=== PATIENT | male | born 1950 | race Hispanic/Latino ===

== ENCOUNTER 2019-12-16 16:24 | Inpatient (IN) | payer OTHER, MEDICARE ==
[~2019-12-16] VITALS: Ht 170.2 cm; Wt 77.8 kg
[2019-12-16] MEDS ORDERED: ALBUTEROL INHALER 90MCG/INH IH ONE (16:37)
[2019-12-16 16:56] LABS: BASOPHILS % (AUTO) 0.1 % (0.0-5.0); EOSINOPHILS % (AUTO) 0.3 % (0.0-8.0); HEMATOCRIT 42.9 % (42-54); LYMPHOCYTES % (AUTO) 2.5 % (21.0-51.0); MEAN CORPUSCULAR HEMOGLOBIN 31.8 pg (27.0-33.0); MEAN CORPUSCULAR HGB CONC 34.3 g/dL (32.0-36.0); MEAN CORPUSCULAR VOLUME 92.9 fL (79-99); MONOCYTES % (AUTO) 3.4 % (3.0-13.0); NEUTROPHILS % (AUTO) 92.5 % (40.0-77.0); PLATELET COUNT (AUTO) 305 K/uL (130-400); RED BLOOD CELL COUNT(AUTO) 4.62 MIL/uL (4.50-6.20); RED CELL DISTRIBUTION WIDTH 13.2 % (11.0-15.5); WHITE BLOOD COUNT (AUTO) 20.6 K/uL (4.8-10.8)
[2019-12-16 17:10] LABS: INR 0.92 (0.85-1.15); PARTIAL THROMBOPLASTIN TIME 27.4 SEC (26.3-35.5)
[2019-12-16 17:23] LABS: B-TYPE NATRIURETIC PEPTIDE 272 pg/mL (0-100)
[2019-12-16 17:30] LABS: ALBUMIN 2.1 g/dL (3.5-5.0); BILIRUBIN,TOTAL 0.7 mg/dL (0.2-1.0); CREATININE 1.4 mg/dL (0.5-1.5); POTASSIUM 4.7 mmol/L (3.5-5.1); TOTAL PROTEIN, SERUM 6.7 g/dL (6.0-8.3)
[2019-12-16 17:44] LABS: CRP QUANTITATIVE 272.9 mg/L (0.00-9.0)
[2019-12-16 17:47] LABS: FERRITIN 1786 ng/mL (30-400)
[2019-12-16] MEDS ORDERED: DOXYCYCLINE 100MG+NS 250ML 250 ML IV ONE (18:06)
[2019-12-16] MEDS ORDERED: ALBUTEROL INHALER 90MCG/INH IH PRN (20:30)
[2019-12-16] MEDS ORDERED: ONDANSETRON HCL 4 MG/2 ML VIAL IV PRN (20:30)
[2019-12-16] MEDS: DOXYCYCLINE 100MG+NS 250ML 250 ML IV SCH (20:30)
[2019-12-16] MEDS ORDERED: ZOLPIDEM TARTRATE 5 MG TAB PO PRN (20:30)
[2019-12-16] MEDS: CEFTRIAXONE SODIUM 1 GM IVP SCH (20:30)
[2019-12-16] MEDS ORDERED: ACETAMINOPHEN 325 MG TAB PO PRN (20:30)
[2019-12-16] MEDS ORDERED: ERGOCALCIFEROL (VITAMIN D2) 50,000 UNIT CAPSULE PO ONE (20:45)
[2019-12-16] MEDS: ACETYLCYSTEINE 600 MG CAPSULE PO SCH (21:00)
[2019-12-16] MEDS: FAMOTIDINE/PF 20 MG/2 ML VIAL IV SCH (21:00)
[2019-12-16] MEDS: METHYLPREDNISOLONE SOD SUCC 40MG/ML 1ML IVP SCH (21:00)
[2019-12-16 22:02] LABS: APPEARANCE,URINE Clear (CLEAR); BILIRUBIN,URINE Negative (NEGATIVE); COLOR,URINE Yellow (YELLOW); GLUCOSE, URINE (UA) Negative (NEGATIVE); KETONES,URINE Negative (NEGATIVE); LEUKOCYTE ESTERASE ,URINE Negative (NEGATIVE); NITRATE,URINE Negative (NEGATIVE); OCCULT BLOOD,URINE Negative (NEGATIVE); PROTEIN,URINE Trace mg/dL (NEGATIVE)
[2019-12-16 22:10] LABS: RBC,URINE 0-1 /HPF (0-1); WBC,URINE 0-1 /HPF (0-1)
[2019-12-16 22:11] LABS: BACTERIA,URINE Rare /HPF (None Seen); MUCUS,URINE Rare LPF (None Seen); SQUAMOUS EPITHELIAL CELL,UR Rare /HPF (0-2)
[2019-12-16] MEDS ORDERED: FAMOTIDINE/PF 20 MG/2 ML VIAL IV ONE (22:37)
[2019-12-16] MEDS ORDERED: CEFTRIAXONE SODIUM 1 GM ONE (22:37)
[2019-12-16] MEDS ORDERED: ERGOCALCIFEROL (VITAMIN D2) 50,000 UNIT CAPSULE ONE (22:37)
[2019-12-16] MEDS ORDERED: ACETYLCYSTEINE 600 MG CAPSULE ONE (22:37)
--- NOTE | 2019-12-16 23:05 | NUR ---
ADMIT PATIENT ARRIVED TO THE FLOOR VIA STRETCHER ACCOMPANIED BY ER NURSE MILKA AND RESPIRATORY THERAPIST. PT ASSISTED TO THE BED WITH SOB ON EXERTION. AFTER IN BED TELE MONITOR CALLED TO INFORM PATIENT HAD EPISODE OF A-FLUTTER WHICH SUBSIDED AND PATIENT REMAINED IN SR. DB=508/98, 86, 97.6, 22 92% ON HI SANAM O2 @ 50L. PT ORIENTED TO ROOM AND STAFF VIA UPPER SORBIAN SPEAKING TECH. CALL DEVICE WITHIN REACH WILL CONT. TO MONITOR.
--- NOTE | 2019-12-17 02:00 | NUR ---
HEART RATE PATIENT WITH EPISODE OF A-FLUTTER VIA TELE MONITOR IN THE 130-140S. METER MECHANIC CRIME PREVENTION POLICE OFFICER NOTIFIED GAVE ORDER TO GIVE METOPROLOL 5MG IVP HEART SUSTAINING IN 140s/. PATIENT WITH NO C./O CHEST PAIN OR ANXIETYSPO2 91% ON HI-FLOW 50L. CALL DEVICE WITHIN REACH, WILL CONT. TO MONITOR.
[2019-12-17] MEDS: METOPROLOL TARTRATE 1 MG/ML 5ML VIAL IV PRN (02:10)
[2019-12-17] MEDS ORDERED: DILTIAZEM HCL 125 MG/25 ML 125 MG in SODIUM CHLORIDE 0.9% 100 ML IV PRN (03:00)
[2019-12-17] MEDS ORDERED: DILTIAZEM HCL 5 MG/ML 5 ML VIAL IVP PRN (03:00)
--- NOTE | 2019-12-17 03:45 | NUR ---
ARRHYTHMIA PATIENT WITH CONT EPISODE OF A-FLUTTER VIA TELE MONITOR IN THE 130-140S. MANUFACTURING OPERATIONS MANAGER SEWER DIGGER NOTIFIED GAVE ORDER TO GIVE CARDIAZEM IVP BOLUS AND INITIATE CARDIAZEM IV DRIP, 12LEAD EKG AND CARDIO CONSULT IN THE AM. HEART RATE SUSTAINING IN 140s/. PATIENT EDUCATED OF THE NEED AND USE OF CARDIAZEM TO CORRECT HEART RATE VIA ANDORRAN SPEAKING TECH. PATIENT EXPRESSED UNDERSTANDING. PATIENT WITH NO C/O CHEST PAIN OR ANXIETY SPO2 91% ON HI-FLOW 50L 100% FiO2. CALL DEVICE WITHIN REACH, WILL CONT. TO MONITOR.
[2019-12-17] MEDS: ALPRAZOLAM 0.25 MG TABLET PO PRN (04:00)
[2019-12-17 04:20] VITALS: BP 118/73
--- NOTE | 2019-12-17 05:15 | NUR ---
FOLLOW UP PATIENT CURRENTLY ON CARDIAZEM DRIP AT 10MG/HR TOLERATING WELL CURRENT HEART RATE IN 100 TO 110s. PT DENIES ANY CHEST PAIN, SOB OR ANXIETY. CALL DEVICE WITHIN REACH WILL CONT. TO MONITOR.
[2019-12-17 05:21] LABS: BASOPHILS % (AUTO) 0.1 % (0.0-5.0); HEMATOCRIT 42.7 % (42-54); LYMPHOCYTES % (AUTO) 3.4 % (21.0-51.0); MEAN CORPUSCULAR HEMOGLOBIN 31.7 pg (27.0-33.0); MEAN CORPUSCULAR HGB CONC 34.2 g/dL (32.0-36.0); MEAN CORPUSCULAR VOLUME 92.8 fL (79-99); NEUTROPHILS % (AUTO) 91.5 % (40.0-77.0); PLATELET COUNT (AUTO) 337 K/uL (130-400); RED CELL DISTRIBUTION WIDTH 13.2 % (11.0-15.5); WHITE BLOOD COUNT (AUTO) 17.6 K/uL (4.8-10.8)
[2019-12-17 05:54] LABS: ALANINE AMINOTRANSFERASE 47 U/L (12-78); ASPARTATE AMINOTRANSFERASE 37 U/L (10-37); BILIRUBIN,TOTAL 0.6 mg/dL (0.2-1.0); CARBON DIOXIDE 26 mmol/L (21-32); CHLORIDE 105 mmol/L (101-111); CREATINE KINASE, TOTAL 93 U/L (21-232); CREATININE 1.4 mg/dL (0.5-1.5); GLOMERULAR FILTR. RATE CALC 53 mL/min (>60); GLUCOSE,RANDOM 277 mg/dL (70-105); LACTATE DEHYDROGENASE 484 U/L (81-234); MYOGLOBIN 134 ng/mL (10-92); POTASSIUM 4.9 mmol/L (3.5-5.1); SODIUM SERUM 138 mmol/L (136-145); TOTAL PROTEIN, SERUM 6.6 g/dL (6.0-8.3); TROPONIN I < 0.04 ng/mL (0.00-0.06); UREA NITROGEN, BLOOD 32 mg/dL (7-18)
[2019-12-17 08:34] VITALS: BP 120/78
[2019-12-17] MEDS ORDERED: ENOXAPARIN SODIUM 40 MG/0.4 ML SYRINGE SQ SCH ×2 (09:00→11:30)
[2019-12-17] MEDS: DOXYCYCLINE 100MG+NS 250ML 250 ML IV SCH ×2 (09:19→20:30)
[2019-12-17] MEDS: CEFTRIAXONE SODIUM 1 GM IVP SCH ×2 (09:19→20:30)
[2019-12-17] MEDS: ACETYLCYSTEINE 600 MG CAPSULE PO SCH ×2 (09:20→21:00)
[2019-12-17] MEDS: METHYLPREDNISOLONE SOD SUCC 40MG/ML 1ML IVP SCH (09:20)
[2019-12-17] MEDS: ZINC SULFATE 220 CAPSULE PO SCH (09:20)
[2019-12-17] MEDS: FAMOTIDINE/PF 20 MG/2 ML VIAL IV SCH ×2 (09:20→21:00)
[2019-12-17] MEDS: ACETAMINOPHEN 325 MG TAB PO PRN (09:21)
[2019-12-17] MEDS: GUAIFENESIN-DM 200/20 MG 10 ML PO PRN (09:21)
[2019-12-17] MEDS: ASCORBIC ACID 500 MG TAB PO SCH (09:21)
[2019-12-17] MEDS ORDERED: PHARMACY COMMUNICATION MISC SCH (10:30)
[2019-12-17 13:39] VITALS: BP 115/72
--- NOTE | 2019-12-17 13:45 | NUR ---
DC PLAN CALLED BACK TO ANSWER QUESTIONS. PATIENT LIVES IN [place]. INDEPENDENT ABLE TO PERFORM ADL'S. PATIENT HAS NO SERVICES OR DME'S. FEELS SAFE TO RETURN HOME. Addendum: 12/17/19 at 1351 by TRINIDAD NOVA RN CM Amended: Links added.
[2019-12-17 16:20] VITALS: BP 152/78
[2019-12-17 20:00] VITALS: BP 119/70
[2019-12-17] MEDS ORDERED: COMPOUND IV REFRIGERATED 1 EACH IVSOLN MISC PRN (20:00)
[2019-12-17] MEDS ORDERED: REMDESIVIR (EUA) 520 200 MG in SODIUM CHLORIDE 0.9% 250 ML IV ONE (20:00)
--- NOTE | 2019-12-17 20:00 | NUR ---
SHIFT UPDATE PATIENT GIVEN FULL BED BATH, ALL LINENS CHANGED, REPOSITIONED AND PULLED UP IN BED. REMAINS ON CARDIAZEM DRIP HEART RATE CURRENTLY 80s TO 90s DOSE REDUCED FROM 15 TO 5 MG/HR. NO RESP. DISTRESS NOTED, SPO2 93 ON HIFLOW 50L AND NR. INITIAL DOSE OF REMDESIVIR GIVEN PT. TOLERATED WELL. PATIENT PLEASANT AND COOPERATIVE WITH CARE. CALL DEVICE WITHIN REACH WILL CONT. TO MONITOR.
[2019-12-17] MEDS: CLONAZEPAM 1 MG TABLET PO SCH (21:00)
[2019-12-17] MEDS: ENOXAPARIN SODIUM 80 MG/0.8 ML SQ SCH (21:00)
[2019-12-17] MEDS: DEXAMETHASONE SOD PHOSPHATE 4 MG/ML 1ML VIAL IVP SCH (21:00)
[2019-12-17] MEDS ORDERED: SODIUM CHLORIDE 0.9% 500ML 500 ML IV ONE (21:08)
[2019-12-18] VITALS: BP 118/68
--- NOTE | 2019-12-18 00:01 | NUR ---
UPDATE CALL FROM TELE MONITOR STATING PATIENT HAS CONVERTED TO SINUS RHYTHM IN THE 60's. CARDIZEM DRIP STOPPED AT THIS TIME. PATIENT STABLE AT THIS TIME. CALL DEVICE WITHIN REACH WILL CONT. TO MONITOR.
--- NOTE | 2019-12-18 02:00 | NUR ---
UPDATE PATENT PLACED IN PRONE POSITION, TOLERATED WELL. SPO2 INCREASED, CURRENTLY AT 98% ON HI-SANAM 50 LITERS WITH NB MASK. CALL DEVICE WITHIN REACH WILL CONT. TO MONITOR.
[2019-12-18 04:00] VITALS: BP 99/51
[2019-12-18 04:10] LABS: BASOPHILS % (AUTO) 0.1 % (0.0-5.0); HEMATOCRIT 40.6 % (42-54); LYMPHOCYTES % (AUTO) 3.2 % (21.0-51.0); MEAN CORPUSCULAR HEMOGLOBIN 31.7 pg (27.0-33.0); MEAN CORPUSCULAR VOLUME 93.3 fL (79-99); MONOCYTES % (AUTO) 4.6 % (3.0-13.0); NEUTROPHILS % (AUTO) 91.4 % (40.0-77.0); PLATELET COUNT (AUTO) 342 K/uL (130-400); RED BLOOD CELL COUNT(AUTO) 4.35 MIL/uL (4.50-6.20); RED CELL DISTRIBUTION WIDTH 13.2 % (11.0-15.5); WHITE BLOOD COUNT (AUTO) 12.3 K/uL (4.8-10.8)
[2019-12-18 04:28] LABS: BILIRUBIN,TOTAL 0.4 mg/dL (0.2-1.0); CREATININE 1.4 mg/dL (0.5-1.5); CRP QUANTITATIVE 148.6 mg/L (0.00-9.0); POTASSIUM 4.4 mmol/L (3.5-5.1); TOTAL PROTEIN, SERUM 6.3 g/dL (6.0-8.3)
[2019-12-18] MEDS: PHARMACY COMMUNICATION MISC SCH (07:01)
[2019-12-18] MEDS: INSULIN HUMULIN R 100 UNIT/ML 3ML SQ SCH ×7 (07:30→21:00)
[2019-12-18 08:15] VITALS: BP 147/90
[2019-12-18 08:18] LABS: HEMOGLOBIN A1C 7.3 % (4.0-6.0)
[2019-12-18] MEDS: FAMOTIDINE/PF 20 MG/2 ML VIAL IV SCH ×2 (08:57→21:00)
[2019-12-18] MEDS: ZINC SULFATE 220 CAPSULE PO SCH (08:57)
[2019-12-18] MEDS: CEFTRIAXONE SODIUM 1 GM IVP SCH ×2 (08:57→20:30)
[2019-12-18] MEDS: ACETYLCYSTEINE 600 MG CAPSULE PO SCH ×2 (08:58→21:00)
[2019-12-18] MEDS: ENOXAPARIN SODIUM 80 MG/0.8 ML SQ SCH ×2 (08:58→21:00)
[2019-12-18] MEDS: DEXAMETHASONE SOD PHOSPHATE 4 MG/ML 1ML VIAL IVP SCH ×2 (08:58→21:00)
[2019-12-18] MEDS: ASCORBIC ACID 500 MG TAB PO SCH (08:58)
[2019-12-18] MEDS: CLONAZEPAM 1 MG TABLET PO SCH ×2 (08:59→21:00)
[2019-12-18] MEDS: DOXYCYCLINE 100MG+NS 250ML 250 ML IV SCH ×2 (09:25→20:30)
[2019-12-18 12:00] VITALS: BP 134/87
[2019-12-18] MEDS: DILTIAZEM HCL 120 MG CAP.SR.24H PO SCH (12:14)
[2019-12-18] MEDS: REMDESIVIR (EUA) 520 100 MG in SODIUM CHLORIDE 0.9% 250 ML IV SCH (12:32)
[2019-12-18 16:45] VITALS: BP 138/78
--- NOTE | 2019-12-18 18:06 | NUR ---
Patient ate less than half of lunch and dinner. Last fs 139 and no coverage due to lack of intake. will continue to monitor as needed. Addendum: 12/18/19 at 1808 by Tarik Gonzalez RN RN Patient was proned after from approximately 1300 to 1745. tolerated well with turning. will continue to monitor
[2019-12-18 20:47] VITALS: BP 151/89
[2019-12-18] MEDS: INSULIN GLARGINE 100 UNITS/ML 10 ML VIAL SQ SCH (21:00)
--- NOTE | 2019-12-18 22:35 | NUR ---
PLASMA SECOND BAG OF PLASMA INITIATED AND INFUSING W/O DIFFICULTY. PATIENT'S VITALS STABLE, NO ADVERSE REACTIONS NOTED AT THIS TIME. NO C/O PAIN OR DISCOMFORT, CALL DEVICE WITHIN REACH WILL CONT. TO MONITOR.
[2019-12-19 00:25] VITALS: BP 147/83
[2019-12-19] MEDS: METOPROLOL TARTRATE 1 MG/ML 5ML VIAL IV PRN (00:30)
--- NOTE | 2019-12-19 00:30 | NUR ---
ARRHYTHMIA PATIENT WITH CONT EPISODE OF A-FLUTTER VIA TELE MONITOR IN THE 130-140S HIGHEST 150S. COAL SAMPLE TESTER ANESTHESIOLOGIST NOTIFIED HE INSTRUCTED THIS NURSE TO GIVE METOPROLOL 5MG PER EXISTING PRN ORDER, 12LEAD EKG AND CARDIO CONSULT IN THE AM. HEART RATE SUSTAINING IN 140s/. PATIENT EDUCATED OF THE NEED AND USE OF METOPROLOL TO LOWER HEART RATE VIA FILIPINO SPEAKING TECH. PATIENT EXPRESSED UNDERSTANDING. PATIENT WITH NO C/O CHEST PAIN OR ANXIETY SPO2 91% ON HI-FLOW 50L 100% FiO2. CALL DEVICE WITHIN REACH, WILL CONT. TO MONITOR.
--- NOTE | 2019-12-19 02:00 | NUR ---
SHIFT UPDATE PATIENT HEART RATE REASSESSED CURRENTLY IN A-FLUTTER 100s. ON-CALL HAIR AND MAKEUP DESIGNER UPDATED ON PATIENTS CURRENT STATUS, HE EXPRESSED UNDERSTANDING. BED BATH GIVEN, LINENS CHANGED. PATIENT PLACED IN PRONE POSITION AT THIS TIME, HE TOLERATED WELL. SPO2 INCREASED, CURRENTLY AT 98% ON HI-SANAM 50 LITERS WITH NON-REBREATHER MASK. CALL DEVICE WITHIN REACH WILL CONT. TO MONITOR.
[2019-12-19 04:50] VITALS: BP 116/70
[2019-12-19 04:54] LABS: BASOPHILS % (AUTO) 0.2 % (0.0-5.0); HEMATOCRIT 42.7 % (42-54); LYMPHOCYTES % (AUTO) 3.3 % (21.0-51.0); MEAN CORPUSCULAR HEMOGLOBIN 31.8 pg (27.0-33.0); MEAN CORPUSCULAR HGB CONC 34.2 g/dL (32.0-36.0); MONOCYTES % (AUTO) 3.9 % (3.0-13.0); NEUTROPHILS % (AUTO) 91.8 % (40.0-77.0); PLATELET COUNT (AUTO) 352 K/uL (130-400); RED BLOOD CELL COUNT(AUTO) 4.59 MIL/uL (4.50-6.20); RED CELL DISTRIBUTION WIDTH 13.3 % (11.0-15.5)
[2019-12-19] MEDS: PHARMACY COMMUNICATION MISC SCH (05:11)
[2019-12-19 05:15] LABS: ALBUMIN 2.2 g/dL (3.5-5.0); BILIRUBIN,DIRECT 0.2 mg/dL (0.0-0.3); BILIRUBIN,TOTAL 0.5 mg/dL (0.2-1.0); CREATININE 1.4 mg/dL (0.5-1.5); CRP QUANTITATIVE 79.3 mg/L (0.00-9.0); POTASSIUM 4.6 mmol/L (3.5-5.1); TOTAL PROTEIN, SERUM 6.4 g/dL (6.0-8.3)
[2019-12-19] MEDS: INSULIN HUMULIN R 100 UNIT/ML 3ML SQ SCH ×7 (06:43→21:00)
[2019-12-19 08:00] VITALS: BP 123/94
[2019-12-19] MEDS: CEFTRIAXONE SODIUM 1 GM IVP SCH ×2 (08:00→20:30)
[2019-12-19] MEDS: DOXYCYCLINE 100MG+NS 250ML 250 ML IV SCH ×2 (08:00→20:30)
[2019-12-19] MEDS: DEXAMETHASONE SOD PHOSPHATE 4 MG/ML 1ML VIAL IVP SCH ×2 (08:01→21:00)
[2019-12-19] MEDS: FAMOTIDINE/PF 20 MG/2 ML VIAL IV SCH ×2 (08:01→21:00)
[2019-12-19] MEDS: ASCORBIC ACID 500 MG TAB PO SCH (08:02)
[2019-12-19] MEDS: CLONAZEPAM 1 MG TABLET PO SCH ×2 (08:02→21:00)
[2019-12-19] MEDS: ZINC SULFATE 220 CAPSULE PO SCH (08:02)
[2019-12-19] MEDS: ACETYLCYSTEINE 600 MG CAPSULE PO SCH ×2 (08:02→21:00)
[2019-12-19] MEDS: DILTIAZEM HCL 120 MG CAP.SR.24H PO SCH (08:02)
[2019-12-19] MEDS: ENOXAPARIN SODIUM 80 MG/0.8 ML SQ SCH ×2 (08:03→21:00)
[2019-12-19] MEDS: REMDESIVIR (EUA) 520 100 MG in SODIUM CHLORIDE 0.9% 250 ML IV SCH (14:08)
[2019-12-19 16:25] VITALS: BP 111/74
[2019-12-19 16:32] LABS: ABG BASE EXCESS -6.7 mmol/L (-2.0-3.0); ABG HCO3 15.8 mmol/L (21.0-28.0); ABG OXYGEN SATURATION 92.9 % (95.0-99.0); ABG PCO2 25 mmHg (35-48)
[2019-12-19 20:00] VITALS: BP 119/77
[2019-12-19] MEDS: INSULIN GLARGINE 100 UNITS/ML 10 ML VIAL SQ SCH (21:00)
[2019-12-20] VITALS: BP 115/72
[2019-12-20 03:34] LABS: BASOPHILS % (AUTO) 0.2 % (0.0-5.0); HEMATOCRIT 43.4 % (42-54); LYMPHOCYTES % (AUTO) 2.7 % (21.0-51.0); MEAN CORPUSCULAR HEMOGLOBIN 31.4 pg (27.0-33.0); MEAN CORPUSCULAR HGB CONC 33.6 g/dL (32.0-36.0); MEAN CORPUSCULAR VOLUME 93.3 fL (79-99); MONOCYTES % (AUTO) 2.9 % (3.0-13.0); NEUTROPHILS % (AUTO) 93.4 % (40.0-77.0); PLATELET COUNT (AUTO) 378 K/uL (130-400); RED BLOOD CELL COUNT(AUTO) 4.65 MIL/uL (4.50-6.20); RED CELL DISTRIBUTION WIDTH 13.2 % (11.0-15.5); WHITE BLOOD COUNT (AUTO) 14.3 K/uL (4.8-10.8)
[2019-12-20 03:47] LABS: BILIRUBIN,DIRECT 0.1 mg/dL (0.0-0.3); BILIRUBIN,TOTAL 0.4 mg/dL (0.2-1.0); CREATININE 0.5 mg/dL (0.5-1.5); TOTAL PROTEIN, SERUM 6.1 g/dL (6.0-8.3)
[2019-12-20 04:00] VITALS: BP 117/73
[2019-12-20] MEDS: PHARMACY COMMUNICATION MISC SCH ×6 (06:16→22:55)
[2019-12-20] MEDS: INSULIN HUMULIN R 100 UNIT/ML 3ML SQ SCH ×7 (06:19→22:51)
[2019-12-20 08:00] VITALS: BP 142/84
[2019-12-20] MEDS: CEFTRIAXONE SODIUM 1 GM IVP SCH ×2 (09:09→22:23)
[2019-12-20] MEDS: CLONAZEPAM 1 MG TABLET PO SCH ×2 (09:10→22:23)
[2019-12-20] MEDS: ASCORBIC ACID 500 MG TAB PO SCH (09:10)
[2019-12-20] MEDS: DEXAMETHASONE SOD PHOSPHATE 4 MG/ML 1ML VIAL IVP SCH ×2 (09:10→22:23)
[2019-12-20] MEDS: DILTIAZEM HCL 120 MG CAP.SR.24H PO SCH (09:10)
[2019-12-20] MEDS: ZINC SULFATE 220 CAPSULE PO SCH (09:10)
[2019-12-20] MEDS: FAMOTIDINE/PF 20 MG/2 ML VIAL IV SCH ×2 (09:10→22:23)
[2019-12-20] MEDS: ACETYLCYSTEINE 600 MG CAPSULE PO SCH ×2 (09:10→22:23)
[2019-12-20] MEDS: ENOXAPARIN SODIUM 80 MG/0.8 ML SQ SCH ×2 (09:11→22:50)
[2019-12-20] MEDS: DOXYCYCLINE 100MG+NS 250ML 250 ML IV SCH ×2 (09:23→22:23)
--- NOTE | 2019-12-20 10:59 | NUR ---
At approximately 1045---patient proned. no distress noted. will continue to monitor during tour as needed
[2019-12-20 11:28] LABS: CREATININE 1.3 mg/dL (0.5-1.5); POTASSIUM 4.4 mmol/L (3.5-5.1)
[2019-12-20] MEDS: REMDESIVIR (EUA) 520 100 MG in SODIUM CHLORIDE 0.9% 250 ML IV SCH (12:25)
[2019-12-20] MEDS ORDERED: ALBUMIN (HUMAN) 25% 50 ML IV SCH (16:15)
[2019-12-20 16:30] VITALS: BP 128/70
[2019-12-20] MEDS ORDERED: PHARMACY COMMUNICATION MISC SCH (16:45)
[2019-12-20] MEDS: GUAIFENESIN-DM 200/20 MG 10 ML PO PRN (18:43)
[2019-12-20 20:15] VITALS: BP 138/79
[2019-12-20] MEDS ORDERED: FUROSEMIDE 10 MG/ML 2ML VIAL IV SCH (21:50)
[2019-12-20] MEDS: INSULIN GLARGINE 100 UNITS/ML 10 ML VIAL SQ SCH (22:52)
[2019-12-20 23:35] VITALS: BP 127/72
[2019-12-21] MEDS: PHARMACY COMMUNICATION MISC SCH ×25 (01:00→21:20)
[2019-12-21] MEDS: METOPROLOL TARTRATE 1 MG/ML 5ML VIAL IV PRN (02:15)
[2019-12-21 04:09] LABS: HEMATOCRIT 48.5 % (42-54); MEAN CORPUSCULAR HEMOGLOBIN 31.6 pg (27.0-33.0); MEAN CORPUSCULAR VOLUME 92.9 fL (79-99); PLATELET COUNT (AUTO) 399 K/uL (130-400); RED BLOOD CELL COUNT(AUTO) 5.22 MIL/uL (4.50-6.20); RED CELL DISTRIBUTION WIDTH 12.8 % (11.0-15.5); WHITE BLOOD COUNT (AUTO) 19.3 K/uL (4.8-10.8)
[2019-12-21 04:21] LABS: ALBUMIN 2.1 g/dL (3.5-5.0); BILIRUBIN,DIRECT 0.2 mg/dL (0.0-0.3); BILIRUBIN,TOTAL 0.5 mg/dL (0.2-1.0); CREATININE 1.4 mg/dL (0.5-1.5); CRP QUANTITATIVE 47.9 mg/L (0.00-9.0); POTASSIUM 4.5 mmol/L (3.5-5.1); TOTAL PROTEIN, SERUM 6.5 g/dL (6.0-8.3)
[2019-12-21 05:10] VITALS: BP 123/78
[2019-12-21 05:26] LABS: BAND NEUTROPHILS % (MANUAL) 1 % (0-2); LYMPHOCYTES % (MANUAL) 2 % (22-44); MONOCYTES % (MANUAL) 5 % (2-9); SEGMENTED NEUTROPHILS % 92 % (40-70)
[2019-12-21 05:27] LABS: MAN.DIFF COMMENT-IMPRESSION MANUAL DIFFERENTIAL; PLATELET MORPHOLOGY COMMENT ADEQUATE
[2019-12-21] MEDS: INSULIN HUMULIN R 100 UNIT/ML 3ML SQ SCH ×7 (07:03→21:19)
[2019-12-21 08:00] VITALS: BP 115/76
[2019-12-21] MEDS: CLONAZEPAM 1 MG TABLET PO SCH ×2 (08:22→21:14)
[2019-12-21] MEDS: FAMOTIDINE/PF 20 MG/2 ML VIAL IV SCH ×2 (08:22→21:13)
[2019-12-21] MEDS: ENOXAPARIN SODIUM 80 MG/0.8 ML SQ SCH ×2 (08:22→21:17)
[2019-12-21] MEDS: DILTIAZEM HCL 120 MG CAP.SR.24H PO SCH (08:22)
[2019-12-21] MEDS: ACETYLCYSTEINE 600 MG CAPSULE PO SCH ×2 (08:23→21:14)
[2019-12-21] MEDS: ASCORBIC ACID 500 MG TAB PO SCH (08:23)
[2019-12-21] MEDS: ZINC SULFATE 220 CAPSULE PO SCH (08:23)
[2019-12-21] MEDS: DEXAMETHASONE SOD PHOSPHATE 4 MG/ML 1ML VIAL IVP SCH ×2 (08:23→21:13)
[2019-12-21] MEDS: DOXYCYCLINE 100MG+NS 250ML 250 ML IV SCH ×2 (08:23→21:12)
[2019-12-21] MEDS: CEFTRIAXONE SODIUM 1 GM IVP SCH ×2 (08:23→21:13)
[2019-12-21] MEDS: REMDESIVIR (EUA) 520 100 MG in SODIUM CHLORIDE 0.9% 250 ML IV SCH (13:01)
[2019-12-21] MEDS ORDERED: SENNOSIDES 8.6 MG TABLET PO PRN (13:30)
[2019-12-21] MEDS: LACTATED RINGERS 1000ML 1,000 ML IV SCH (14:13)
--- NOTE | 2019-12-21 19:00 | NUR ---
ACCEPTED CARE ACCEPTED CARE REPORT RECEIVED USING SBAR FORMAT
[2019-12-21 20:36] VITALS: BP 120/69
[2019-12-21] MEDS: DOCUSATE SODIUM 100 MG CAP PO SCH (21:14)
[2019-12-21] MEDS: INSULIN GLARGINE 100 UNITS/ML 10 ML VIAL SQ SCH (21:16)
[2019-12-22] VITALS (7 sets, daily range): BP systolic 105–186; BP diastolic 48–84
--- NOTE | 2019-12-22 04:13 | NUR ---
ROOM CHANGE PATIENT MOVED FROM 230 TO ROOM 232 DUE TO SAFETY CONCERNS AND TO BE CLOSER TO NURSES STATION. Addendum: 12/22/19 at 0416 by Mary Ellen Cool RN RN MOVED WITH RN, RT AND PCT. TOLERATED TRANSFER WITHOUT INCIDENCE OR DIFFICULTY.
[2019-12-22 04:35] LABS: BASOPHILS % (AUTO) 0.1 % (0.0-5.0); HEMATOCRIT 46.1 % (42-54); LYMPHOCYTES % (AUTO) 2.4 % (21.0-51.0); MEAN CORPUSCULAR HEMOGLOBIN 31.5 pg (27.0-33.0); MEAN CORPUSCULAR HGB CONC 34.3 g/dL (32.0-36.0); MONOCYTES % (AUTO) 2.6 % (3.0-13.0); NEUTROPHILS % (AUTO) 93.9 % (40.0-77.0); PLATELET COUNT (AUTO) 404 K/uL (130-400); RED BLOOD CELL COUNT(AUTO) 5.01 MIL/uL (4.50-6.20); RED CELL DISTRIBUTION WIDTH 12.7 % (11.0-15.5)
[2019-12-22 04:50] LABS: ALBUMIN 1.9 g/dL (3.5-5.0); BILIRUBIN,TOTAL 0.5 mg/dL (0.2-1.0); CREATININE 1.4 mg/dL (0.5-1.5); POTASSIUM 4.6 mmol/L (3.5-5.1); TOTAL PROTEIN, SERUM 5.9 g/dL (6.0-8.3)
[2019-12-22 05:03] LABS: BILIRUBIN,DIRECT 0.2 mg/dL (0.0-0.3)
[2019-12-22 05:13] LABS: CRP QUANTITATIVE 30.6 mg/L (0.00-9.0)
[2019-12-22] MEDS: INSULIN HUMULIN R 100 UNIT/ML 3ML SQ SCH ×7 (06:47→21:00)
[2019-12-22] MEDS: ASCORBIC ACID 500 MG TAB PO SCH (07:57)
[2019-12-22] MEDS: DEXAMETHASONE SOD PHOSPHATE 4 MG/ML 1ML VIAL IVP SCH ×2 (07:57→22:56)
[2019-12-22] MEDS: ACETYLCYSTEINE 600 MG CAPSULE PO SCH ×2 (07:57→22:56)
[2019-12-22] MEDS: CEFTRIAXONE SODIUM 1 GM IVP SCH ×2 (07:57→20:30)
[2019-12-22] MEDS: DOCUSATE SODIUM 100 MG CAP PO SCH ×2 (07:57→22:56)
[2019-12-22] MEDS: CLONAZEPAM 1 MG TABLET PO SCH ×2 (07:57→22:56)
[2019-12-22] MEDS: FAMOTIDINE/PF 20 MG/2 ML VIAL IV SCH ×2 (07:57→22:56)
[2019-12-22] MEDS: DOXYCYCLINE 100MG+NS 250ML 250 ML IV SCH ×2 (07:58→20:30)
[2019-12-22] MEDS: ENOXAPARIN SODIUM 80 MG/0.8 ML SQ SCH ×2 (07:58→22:56)
[2019-12-22] MEDS: ZINC SULFATE 220 CAPSULE PO SCH (07:58)
[2019-12-22] MEDS: LACTATED RINGERS 1000ML 1,000 ML IV SCH (07:58)
[2019-12-22] MEDS ORDERED: INSULIN GLARGINE 100 UNITS/ML 10 ML VIAL SQ SCH (09:00)
[2019-12-22] MEDS: DILTIAZEM HCL 120 MG CAP.SR.24H PO SCH (09:00)
--- NOTE | 2019-12-22 17:10 | NUR ---
Patient is proned during ski edge painter tour and at approximately 1430. no distress noted at this time. Held insulin dose for 1130am and 1630 dose due to patient not eating most of meals. patient given 4 units. will continue to monitor as needed.
[2019-12-22] MEDS: INSULIN GLARGINE 100 UNITS/ML 10 ML VIAL SQ SCH (21:00)
[2019-12-22] MEDS: METOPROLOL TARTRATE 1 MG/ML 5ML VIAL IV PRN (23:00)
[2019-12-22] MEDS: ALPRAZOLAM 0.25 MG TABLET PO PRN (23:00)
[2019-12-22] MEDS: GUAIFENESIN-DM 200/20 MG 10 ML PO PRN (23:30)
[2019-12-23 04:15] VITALS: BP 112/68
[2019-12-23 04:16] LABS: BASOPHILS % (AUTO) 0.2 % (0.0-5.0); HEMATOCRIT 46.9 % (42-54); LYMPHOCYTES % (AUTO) 2.2 % (21.0-51.0); MEAN CORPUSCULAR HEMOGLOBIN 31.6 pg (27.0-33.0); MEAN CORPUSCULAR HGB CONC 34.5 g/dL (32.0-36.0); MEAN CORPUSCULAR VOLUME 91.4 fL (79-99); MONOCYTES % (AUTO) 2.2 % (3.0-13.0); NEUTROPHILS % (AUTO) 94.3 % (40.0-77.0); PLATELET COUNT (AUTO) 422 K/uL (130-400); RED BLOOD CELL COUNT(AUTO) 5.13 MIL/uL (4.50-6.20); RED CELL DISTRIBUTION WIDTH 12.5 % (11.0-15.5); WHITE BLOOD COUNT (AUTO) 18.7 K/uL (4.8-10.8)
[2019-12-23 04:43] LABS: ALBUMIN 1.9 g/dL (3.5-5.0); BILIRUBIN,TOTAL 0.5 mg/dL (0.2-1.0); CREATININE 1.3 mg/dL (0.5-1.5); CRP QUANTITATIVE 17.7 mg/L (0.00-9.0); POTASSIUM 4.5 mmol/L (3.5-5.1); TOTAL PROTEIN, SERUM 5.8 g/dL (6.0-8.3)
[2019-12-23] MEDS: INSULIN HUMULIN R 100 UNIT/ML 3ML SQ SCH ×5 (06:48→21:00)
[2019-12-23 08:00] VITALS: BP 115/63
[2019-12-23] MEDS: DEXAMETHASONE SOD PHOSPHATE 4 MG/ML 1ML VIAL IVP SCH (08:17)
[2019-12-23] MEDS: FAMOTIDINE/PF 20 MG/2 ML VIAL IV SCH ×2 (08:17→21:00)
[2019-12-23] MEDS: ZINC SULFATE 220 CAPSULE PO SCH (08:17)
[2019-12-23] MEDS: CLONAZEPAM 1 MG TABLET PO SCH ×2 (08:17→21:00)
[2019-12-23] MEDS: ACETYLCYSTEINE 600 MG CAPSULE PO SCH ×2 (08:17→21:00)
[2019-12-23] MEDS: DILTIAZEM HCL 120 MG CAP.SR.24H PO SCH (08:18)
[2019-12-23] MEDS: ASCORBIC ACID 500 MG TAB PO SCH (08:18)
[2019-12-23] MEDS: ENOXAPARIN SODIUM 80 MG/0.8 ML SQ SCH ×2 (08:18→21:00)
[2019-12-23] MEDS: DOCUSATE SODIUM 100 MG CAP PO SCH ×2 (08:18→21:00)
[2019-12-23] MEDS: CEFTRIAXONE SODIUM 1 GM IVP SCH (08:19)
[2019-12-23] MEDS: DOXYCYCLINE 100MG+NS 250ML 250 ML IV SCH ×2 (08:19→20:30)
--- NOTE | 2019-12-23 09:46 | NUR ---
patient received in no distress this am. ate breakfast with no noted shortness of breath noted. proned at this time and will continue to prone for approximately 3- 4 hours. current sats 99% with 72 heart rate. bed alarm on and activated. will continue to monitor and assist during tour.
[2019-12-23 12:00] VITALS: BP 108/79
[2019-12-23] MEDS: INSULIN GLARGINE 100 UNITS/ML 10 ML VIAL SQ SCH (21:00)
[2019-12-23 21:02] VITALS: BP 118/58
[2019-12-24] VITALS (7 sets, daily range): BP systolic 97–125; BP diastolic 60–78
[2019-12-24 03:55] LABS: ABG BASE EXCESS -3.5 mmol/L (-2.0-3.0); ABG HCO3 19.3 mmol/L (21.0-28.0); ABG PCO2 30 mmHg (35-48)
[2019-12-24 03:59] LABS: BASOPHILS % (AUTO) 0.2 % (0.0-5.0); HEMATOCRIT 50.9 % (42-54); LYMPHOCYTES % (AUTO) 3.8 % (21.0-51.0); MEAN CORPUSCULAR HEMOGLOBIN 31.8 pg (27.0-33.0); MEAN CORPUSCULAR HGB CONC 34.8 g/dL (32.0-36.0); MEAN CORPUSCULAR VOLUME 91.5 fL (79-99); MONOCYTES % (AUTO) 3.5 % (3.0-13.0); NEUTROPHILS % (AUTO) 91.6 % (40.0-77.0); PLATELET COUNT (AUTO) 425 K/uL (130-400); RED BLOOD CELL COUNT(AUTO) 5.56 MIL/uL (4.50-6.20); RED CELL DISTRIBUTION WIDTH 12.7 % (11.0-15.5); WHITE BLOOD COUNT (AUTO) 20.8 K/uL (4.8-10.8)
[2019-12-24 04:19] LABS: ALBUMIN 2.1 g/dL (3.5-5.0); BILIRUBIN,TOTAL 0.7 mg/dL (0.2-1.0); CREATININE 1.3 mg/dL (0.5-1.5); CRP QUANTITATIVE 12.1 mg/L (0.00-9.0); POTASSIUM 4.5 mmol/L (3.5-5.1); TOTAL PROTEIN, SERUM 6.1 g/dL (6.0-8.3)
[2019-12-24] MEDS: INSULIN HUMULIN R 100 UNIT/ML 3ML SQ SCH ×4 (06:22→22:03)
[2019-12-24] MEDS ORDERED: INSULIN HUMULIN R 100 UNIT/ML 3ML SQ SCH (07:30)
[2019-12-24] MEDS: DOXYCYCLINE 100MG+NS 250ML 250 ML IV SCH (08:56)
[2019-12-24] MEDS: FAMOTIDINE/PF 20 MG/2 ML VIAL IV SCH ×2 (08:56→22:00)
[2019-12-24] MEDS: ACETYLCYSTEINE 600 MG CAPSULE PO SCH ×2 (08:57→22:00)
[2019-12-24] MEDS: ZINC SULFATE 220 CAPSULE PO SCH (08:57)
[2019-12-24] MEDS: ASCORBIC ACID 500 MG TAB PO SCH (08:57)
[2019-12-24] MEDS: CLONAZEPAM 1 MG TABLET PO SCH ×2 (08:58→22:00)
[2019-12-24] MEDS: DOCUSATE SODIUM 100 MG CAP PO SCH ×2 (08:58→22:00)
[2019-12-24] MEDS: ENOXAPARIN SODIUM 80 MG/0.8 ML SQ SCH ×2 (08:59→22:02)
[2019-12-24] MEDS ORDERED: DEXAMETHASONE 4 MG TAB PO SCH (09:00)
[2019-12-24] MEDS: DILTIAZEM HCL 120 MG CAP.SR.24H PO SCH (09:05)
[2019-12-24] MEDS: METOPROLOL TARTRATE 25 MG TAB PO SCH ×2 (14:05→22:00)
--- NOTE | 2019-12-24 15:19 | NUR ---
US at bedtime for 2-D Echo.
[2019-12-25] MEDS ORDERED: MAG HYDROX/AL HYDROX/SIMETH ES 30 ML SUSP UDCUP PO PRN (00:15)
[2019-12-25 04:06] LABS: BASOPHILS % (AUTO) 0.1 % (0.0-5.0); HEMATOCRIT 50.5 % (42-54); LYMPHOCYTES % (AUTO) 3.3 % (21.0-51.0); MEAN CORPUSCULAR HEMOGLOBIN 31.9 pg (27.0-33.0); MEAN CORPUSCULAR HGB CONC 34.9 g/dL (32.0-36.0); MEAN CORPUSCULAR VOLUME 91.5 fL (79-99); MONOCYTES % (AUTO) 3.7 % (3.0-13.0); PLATELET COUNT (AUTO) 393 K/uL (130-400); RED BLOOD CELL COUNT(AUTO) 5.52 MIL/uL (4.50-6.20); RED CELL DISTRIBUTION WIDTH 12.6 % (11.0-15.5); WHITE BLOOD COUNT (AUTO) 19.7 K/uL (4.8-10.8)
[2019-12-25 04:24] LABS: BILIRUBIN,TOTAL 0.9 mg/dL (0.2-1.0); CREATININE 1.3 mg/dL (0.5-1.5); CRP QUANTITATIVE 19.5 mg/L (0.00-9.0); POTASSIUM 4.9 mmol/L (3.5-5.1)
[2019-12-25 05:46] VITALS: BP 105/81
[2019-12-25] MEDS: METOPROLOL TARTRATE 25 MG TAB PO SCH ×3 (06:39→22:00)
[2019-12-25] MEDS: INSULIN HUMULIN R 100 UNIT/ML 3ML SQ SCH ×4 (06:40→21:00)
[2019-12-25] MEDS: FAMOTIDINE/PF 20 MG/2 ML VIAL IV SCH ×2 (08:05→21:00)
[2019-12-25] MEDS: ZINC SULFATE 220 CAPSULE PO SCH (08:06)
[2019-12-25] MEDS: ACETYLCYSTEINE 600 MG CAPSULE PO SCH (08:07)
[2019-12-25] MEDS: ASCORBIC ACID 500 MG TAB PO SCH (08:07)
[2019-12-25] MEDS: DOCUSATE SODIUM 100 MG CAP PO SCH ×2 (08:08→21:00)
[2019-12-25] MEDS: INSULIN GLARGINE 100 UNITS/ML 10 ML VIAL SQ SCH (08:09)
[2019-12-25] MEDS: ENOXAPARIN SODIUM 80 MG/0.8 ML SQ SCH ×2 (08:10→21:00)
[2019-12-25] MEDS: CLONAZEPAM 1 MG TABLET PO SCH ×2 (08:10→21:00)
[2019-12-25] MEDS: DEXAMETHASONE SOD PHOSPHATE 4 MG/ML 1ML VIAL IVP SCH (08:15)
[2019-12-25 09:38] VITALS: BP 119/80
[2019-12-25] MEDS: DILTIAZEM HCL 120 MG CAP.SR.24H PO SCH (10:33)
[2019-12-25 11:56] VITALS: BP 104/73
[2019-12-25 16:33] VITALS: BP 137/96
[2019-12-25 20:00] VITALS: BP 116/79
[2019-12-25 23:51] VITALS: BP 136/78
[2019-12-26] VITALS (65 sets, daily range): BP systolic 81–141; BP diastolic 36–89
[2019-12-26 04:32] LABS: BASOPHILS % (AUTO) 0.1 % (0.0-5.0); HEMATOCRIT 51.7 % (42-54); LYMPHOCYTES % (AUTO) 3.9 % (21.0-51.0); MEAN CORPUSCULAR HEMOGLOBIN 31.5 pg (27.0-33.0); MEAN CORPUSCULAR VOLUME 92.5 fL (79-99); MONOCYTES % (AUTO) 3.6 % (3.0-13.0); NEUTROPHILS % (AUTO) 91.7 % (40.0-77.0); PLATELET COUNT (AUTO) 310 K/uL (130-400); RED BLOOD CELL COUNT(AUTO) 5.59 MIL/uL (4.50-6.20); RED CELL DISTRIBUTION WIDTH 12.8 % (11.0-15.5); WHITE BLOOD COUNT (AUTO) 20.6 K/uL (4.8-10.8)
[2019-12-26 04:51] LABS: BILIRUBIN,TOTAL 0.8 mg/dL (0.2-1.0); CREATININE 1.3 mg/dL (0.5-1.5); CRP QUANTITATIVE 10.3 mg/L (0.00-9.0); TOTAL PROTEIN, SERUM 5.9 g/dL (6.0-8.3)
[2019-12-26] MEDS: METOPROLOL TARTRATE 25 MG TAB PO SCH ×3 (06:00→22:00)
[2019-12-26] MEDS: INSULIN HUMULIN R 100 UNIT/ML 3ML SQ SCH ×3 (06:23→21:00)
[2019-12-26] MEDS: DILTIAZEM HCL 120 MG CAP.SR.24H PO SCH (09:00)
[2019-12-26] MEDS: DOCUSATE SODIUM 100 MG CAP PO SCH ×2 (09:00→21:00)
[2019-12-26] MEDS: FAMOTIDINE/PF 20 MG/2 ML VIAL IV SCH ×2 (09:02→21:00)
[2019-12-26] MEDS: ASCORBIC ACID 500 MG TAB PO SCH (09:05)
[2019-12-26] MEDS: CLONAZEPAM 1 MG TABLET PO SCH ×2 (09:05→21:00)
[2019-12-26] MEDS: ZINC SULFATE 220 CAPSULE PO SCH (09:05)
[2019-12-26] MEDS: INSULIN GLARGINE 100 UNITS/ML 10 ML VIAL SQ SCH (09:08)
[2019-12-26] MEDS: ENOXAPARIN SODIUM 80 MG/0.8 ML SQ SCH ×2 (09:16→21:00)
[2019-12-26] MEDS: DEXAMETHASONE SOD PHOSPHATE 4 MG/ML 1ML VIAL IVP SCH (09:20)
[2019-12-26] MEDS: ACETAMINOPHEN 325 MG TAB PO PRN (09:21)
--- NOTE | 2019-12-26 09:31 | NUR ---
PT ASSESSED Assumed care of this pt. Pt resting comfortably on stretcher with eyes closed in NAD. Pt reassessed at this time, no changes in condition noted. VSS, RR even and unlabored, airway intact. Pt remains on HFNC and continuous O2 monitoring. Medicated per MAR using 2 pt identifiers, tolerated well, pt also reports moderate temporal PERRY rated 6/10, medicated with PRN tylenol. Denies any other pain or needs at this time. Will continue to monitor.
--- NOTE | 2019-12-26 12:49 | NUR ---
STATUS CHANGE Pt removed from bedside commode and place on bedside chair. Pt noted be be slightly diaphoretic, tachynpeic, and upper ext noted to be cold. MAAME Islas notified of pt's current condition, new orders for ABG and notify pulmonology. New order's placed, pt on HFNC 60 L 90% FIO2 and NRB @ 15L - O2 saturation is 96%. Awaiting ABG, will continue to monitor.
[2019-12-26 13:33] LABS: ABG BASE EXCESS -18.1 mmol/L (-2.0-3.0); ABG HCO3 8.9 mmol/L (21.0-28.0); ABG OXYGEN SATURATION 91.3 % (95.0-99.0); ABG PCO2 26 mmHg (35-48)
--- NOTE | 2019-12-26 15:05 | NUR ---
NOTIFIED Notified MD Pena of pt status and new ABG results, Dr. Pena reports he will see pt shortly. No new orders received, will continue to monitor.
[2019-12-26] MEDS ORDERED: SODIUM BICARB 50MEQ 50ML VIAL ONE ×3 (15:39→20:17)
--- NOTE | 2019-12-26 15:40 | NUR ---
1540: Pt reassessed at this time, noted to be more tachynepic and rapid abdominal breathing. This RN and quynh Celestin RN at bedside to assess VS and call rapid response. Multiple staff members at bedside to assess pt and start IV access. 1542: MD Pena at bedside to evaluate pt. Bicarb noted to have decreased from 20 to 8.9. 1555: 10 mcg fentanyl administered by BRUCE Keyes 1555: 10 mg Vec administered by BRUCE Keyes 1555: 20 mg Etomidate administered by BRUCE Keyes 1557: Pt intubated by MD Pena with 8.0 ETT, 24 @ lip. Vent parameters: TV: 380; RR: 40; 100% FIO2. Stat CXR ordered. BP: 41/26 HR: 118; post-intubation. 1L Bolus administered. CB 1602: NG inserted by BRUCE Keyes. 1605: 16 fr Fisher cath inserted by BRUCE Travis. Clear, yellow urine returned. Addendum: 12/26/19 at 1656 by GRAHAM MACDONALD RN RN 1410: CXR completed. 1611: BRUCE Rossi to bedside to report pt in Asystole. BRUCE Hadley starting compressions at this time. 1613: Bagging started by BRUCE Keyes; BRUCE Travis switched to compressions. 1614: Pt placed on backboard. 1615: Pulse check, no pulse. CPR continued. 1 mg Epi administered. 1616: 1 amp bicarb administered. 1617: Pulse check, no pulse, cpr continued. 1617: 1 amp bicarb administered by BRUCE Celestin 1618: 1 mg Epi administered by Stephy BARRERA 1619: Pulse check; no pulse, CPR resumed. 1621: CPR continued. 1621: 200 J administered. Vfib. CPR resumed 1622: 200 J administered. Vfib. CPR resumed. 1622: 1 mg Epi administered. 1623: ROSC, HR 115. 1625: BP 170/110; HR 117 1626: Vent setting adjusted: RR 30. 1627: BP: 134/90 HR: 120 1630: Pt transported to ICU RM 209. BRUCE Keyes given report.
[2019-12-26 15:44] LABS: ABG BASE EXCESS -25.6 mmol/L (-2.0-3.0); ABG HCO3 5.1 mmol/L (21.0-28.0); ABG OXYGEN SATURATION 90.4 % (95.0-99.0); ABG PCO2 23 mmHg (35-48)
[2019-12-26] MEDS ORDERED: NOREPINEPHRINE 4MG/NS 250ML 250 ML IV ONE (16:31)
[2019-12-26] MEDS ORDERED: SODIUM CHLORIDE 0.9% 1000ML 1,000 ML IV ONE ×3 (16:31→20:34)
[2019-12-26] MEDS ORDERED: NOREPINEPHRINE 4MG/NS 250ML 250 ML IV SCH (17:45)
[2019-12-26] MEDS ORDERED: PROPOFOL 1000 MG/100 ML IV PRN (17:45)
[2019-12-26] MEDS ORDERED: FENTANYL 2500MCG+NS 250ML 250 ML IV SCH (18:00)
--- NOTE | 2019-12-26 18:30 | NUR ---
CALLED EMERGENTLY TO START PICC, PT S/P CODE, POOR IV ACCESS AFTER MULTIPLE ATTEMPTS TO GET PERIPHERAL IV UNSECCESSFUL. 6 FR 3 LUMEN PICC INSERTED AT RIGHT BASILIC VEIN, USING ASEPTIC TECHNIQUE. (+) VPS BULLSEYE INDICATES PICC TIP IN LOWER 1/3 OF SVC OR AT CAJ. PICC OK TO USE PER PROTOCOL. ELIEL BARRERA AWARE. STERILE DRESSINGS INCLUDE BIOPATCH, STAT NATALEE AND PICC DRESSING APPLIED. ALL 3 LUMENS HAVE GOOD BLOOD RETURN, PULSATILE FLUSHED AND CLAMPED. PICC WAS CUT TO 39CM, WITH 38CM INTERNAL AND 1CM EXTERNAL CATHETER. ARM CIRCUMFERENCE IS 30CM. PT TOLERATED PROCEDURE WELL.
[2019-12-26 18:33] LABS: BASOPHILS % (AUTO) 0.2 % (0.0-5.0); HEMATOCRIT 36.6 % (42-54); MEAN CORPUSCULAR HEMOGLOBIN 31.9 pg (27.0-33.0); MEAN CORPUSCULAR HGB CONC 30.6 g/dL (32.0-36.0); MEAN CORPUSCULAR VOLUME 104.3 fL (79-99); NEUTROPHILS % (AUTO) 84.3 % (40.0-77.0); PLATELET COUNT (AUTO) 335 K/uL (130-400); RED BLOOD CELL COUNT(AUTO) 3.51 MIL/uL (4.50-6.20); RED CELL DISTRIBUTION WIDTH 13.2 % (11.0-15.5); WHITE BLOOD COUNT (AUTO) 23.1 K/uL (4.8-10.8)
[2019-12-26 18:41] LABS: INR 1.27 (0.85-1.15); PARTIAL THROMBOPLASTIN TIME 55.1 SEC (26.3-35.5); PROTHROMBIN TIME 13.6 SEC (9.6-11.6)
[2019-12-26 19:01] LABS: ABG BASE EXCESS -30.6 mmol/L (-2.0-3.0); ABG HCO3 5.5 mmol/L (21.0-28.0); ABG OXYGEN SATURATION 98.3 % (95.0-99.0); ABG PCO2 43 mmHg (35-48)
[2019-12-26 19:22] LABS: ALBUMIN 1.3 g/dL (3.5-5.0); BILIRUBIN,TOTAL 1.2 mg/dL (0.2-1.0); CREATININE 2.4 mg/dL (0.5-1.5); MAGNESIUM 3.4 mg/dL (1.80-2.40); TOTAL PROTEIN, SERUM 4.5 g/dL (6.0-8.3)
[2019-12-26 19:55] LABS: POTASSIUM 6.2 mmol/L (3.5-5.1)
--- NOTE | 2019-12-26 20:30 | NUR ---
pt assesed bright red amanda blood coming from oral gastric tube noted. Pt just on levo with fluid bolus running. Will recheck labs at 2230
[2019-12-26] MEDS ORDERED: CALCIUM GLUCONATE 1 GM/10 ML VIAL IV ONE (20:40)
[2019-12-26 22:34] LABS: HEMATOCRIT 30.9 % (42-54)
[2019-12-26 22:37] LABS: ABG HCO3 10.8 mmol/L (21.0-28.0); ABG OXYGEN SATURATION 89.6 % (95.0-99.0); ABG PCO2 64 mmHg (35-48)
[2019-12-26] MEDS: VASOPRESSIN 40 UNITS in SODIUM CHLORIDE 0.9% 40 ML IV SCH (22:43)
--- NOTE | 2019-12-26 22:50 | NUR ---
LABS [facility], CALLED MD ABOUT ABG , HGB, BMP AND LACTIC. VENT CHANGES MADE ND ORDER RECEIVED. WILL CONTINUE TO MONITOR.
[2019-12-26 22:55] LABS: CREATININE 2.8 mg/dL (0.5-1.5); MAGNESIUM 2.5 mg/dL (1.80-2.40); PHOSPHORUS 13.3 mg/dL (2.5-4.9); POTASSIUM 4.6 mmol/L (3.5-5.1)
[2019-12-27] VITALS (129 sets, daily range): BP systolic 67–234; BP diastolic 33–129
--- NOTE | 2019-12-27 00:23 | NUR ---
PT WENT IN TO A-FIB WITH RVR. PERFORM 12 LEAD TO VERIFY. NOTIFIED MD OF HEART RATE CHANGE AND NO URINE OUTPUT AFTER BOLUSES NOTED. RECIEVED ORDERS.
[2019-12-27] MEDS ORDERED: AMIODARONE HCL 150 MG in DEXTROSE 5%-WATER 100 ML IV SCH (00:45)
[2019-12-27] MEDS ORDERED: AMIODARONE HCL 360 MG in DEXTROSE 5%-WATER 200 ML IV SCH (00:45)
[2019-12-27] MEDS ORDERED: LACTATED RINGERS 1000ML 1,000 ML IV ONE (01:27)
[2019-12-27 02:44] LABS: ABG BASE EXCESS -23.9 mmol/L (-2.0-3.0); ABG HCO3 8.7 mmol/L (21.0-28.0); ABG OXYGEN SATURATION 94.5 % (95.0-99.0); ABG PCO2 46 mmHg (35-48)
[2019-12-27] MEDS ORDERED: SODIUM BICARB 50MEQ 50ML VIAL ONE ×2 (02:58→15:59)
[2019-12-27 04:36] LABS: HEMATOCRIT 32.5 % (42-54)
[2019-12-27 04:50] LABS: CREATININE 3.3 mg/dL (0.5-1.5); POTASSIUM 5.1 mmol/L (3.5-5.1)
--- NOTE | 2019-12-27 05:31 | NUR ---
UPDATED MD WITH NEW LAB RESULTS ORDERS RECEIVED.
[2019-12-27] MEDS ORDERED: ALBUMIN (HUMAN) 25% 100 ML IV PRN (05:45)
[2019-12-27] MEDS ORDERED: ALBUMIN (HUMAN) 25% 100 ML IV ONE (05:48)
[2019-12-27] MEDS: METOPROLOL TARTRATE 25 MG TAB PO SCH ×3 (06:00→20:16)
[2019-12-27 06:54] LABS: ABG BASE EXCESS -16.8 mmol/L (-2.0-3.0); ABG OXYGEN SATURATION 90.7 % (95.0-99.0); ABG PCO2 33 mmHg (35-48)
[2019-12-27] MEDS: INSULIN HUMULIN R 100 UNIT/ML 3ML SQ SCH ×4 (07:30→20:09)
[2019-12-27] MEDS: NOREPINEPHRINE BITARTRATE 32 MG in SODIUM CHLORIDE 0.9% 250 ML IV SCH (08:27)
[2019-12-27] MEDS ORDERED: DEXTROSE 50%-WATER 50 ML DISP.SYRIN IV ONE ×2 (08:37→15:54)
[2019-12-27] MEDS: CLONAZEPAM 1 MG TABLET PO SCH ×2 (09:00→20:10)
[2019-12-27] MEDS: DILTIAZEM HCL 120 MG CAP.SR.24H PO SCH (09:00)
[2019-12-27] MEDS: INSULIN GLARGINE 100 UNITS/ML 10 ML VIAL SQ SCH (09:00)
[2019-12-27] MEDS: ASCORBIC ACID 500 MG TAB PO SCH (09:00)
[2019-12-27] MEDS: DOCUSATE SODIUM 100 MG CAP PO SCH ×2 (09:00→20:09)
[2019-12-27] MEDS: ZINC SULFATE 220 CAPSULE PO SCH (09:00)
[2019-12-27] MEDS: ENOXAPARIN SODIUM 80 MG/0.8 ML SQ SCH ×2 (09:00→20:08)
[2019-12-27] MEDS ORDERED: DEXTROSE 10%-WATER 1,000 ML IV SCH (09:30)
--- NOTE | 2019-12-27 14:40 | NUR ---
full code Pt's son Lily Gregg called and said that even if Pt only have 1% chance to survive they are wanting to have everything done for the Pt, Physician notified, no order received at this time.
[2019-12-27 15:03] LABS: BASOPHILS % (AUTO) 0.2 % (0.0-5.0); EOSINOPHILS % (AUTO) 0.1 % (0.0-8.0); HEMATOCRIT 27.2 % (42-54); LYMPHOCYTES % (AUTO) 1.1 % (21.0-51.0); MEAN CORPUSCULAR HEMOGLOBIN 32.3 pg (27.0-33.0); MEAN CORPUSCULAR HGB CONC 31.3 g/dL (32.0-36.0); MEAN CORPUSCULAR VOLUME 103.4 fL (79-99); MONOCYTES % (AUTO) 1.6 % (3.0-13.0); NEUTROPHILS % (AUTO) 91.3 % (40.0-77.0); NUCLEATED RED BLOOD CELLS 0.1 % (0.0-0.19); PLATELET COUNT (AUTO) 165 K/uL (130-400); RED BLOOD CELL COUNT(AUTO) 2.63 MIL/uL (4.50-6.20)
[2019-12-27 15:06] LABS: WHITE BLOOD COUNT (AUTO) 33.6 K/uL (4.8-10.8)
[2019-12-27 15:22] LABS: ABG BASE EXCESS -21.4 mmol/L (-2.0-3.0); ABG OXYGEN SATURATION 87.4 % (95.0-99.0); ABG PCO2 39 mmHg (35-48)
[2019-12-27 15:23] LABS: ALBUMIN 2.1 g/dL (3.5-5.0); BILIRUBIN,TOTAL 3.2 mg/dL (0.2-1.0); CREATININE 4.3 mg/dL (0.5-1.5); MAGNESIUM 2.9 mg/dL (1.80-2.40); TOTAL PROTEIN, SERUM 3.7 g/dL (6.0-8.3)
[2019-12-27 15:27] LABS: BAND NEUTROPHILS % (MANUAL) 13 % (0-2); LYMPHOCYTES % (MANUAL) 1 % (22-44); MAN.DIFF COMMENT-IMPRESSION MANUAL DIFFERENTIAL; SEGMENTED NEUTROPHILS % 86 % (40-70)
[2019-12-27] MEDS ORDERED: DEXTROSE 50%-WATER 50 ML DISP.SYRIN IV STA (15:49)
[2019-12-27] MEDS ORDERED: RENAL DOSE IV SCH (16:00)
[2019-12-27] MEDS ORDERED: VANCOMYCIN PROTOCOL PER PHARMACY IV SCH (16:00)
[2019-12-27] MEDS ORDERED: CALCIUM CHLORIDE 100 MG/ML 10 ML SYG IVP SCH (16:15)
[2019-12-27] MEDS ORDERED: DEXTROSE 50%-WATER 50 ML DISP.SYRIN IV SCH (16:15)
[2019-12-27] MEDS ORDERED: COMPOUND IV REFRIGERATED 1 EACH IVSOLN MISC PRN (16:15)
[2019-12-27 16:18] LABS: POTASSIUM 6.5 mmol/L (3.5-5.1)
[2019-12-27] MEDS: ZOSYN 3.375GM+NS 50ML 50 ML IV SCH (16:37)
[2019-12-27] MEDS: DEXAMETHASONE SOD PHOSPHATE 4 MG/ML 1ML VIAL IVP SCH (16:38)
[2019-12-27] MEDS: FAMOTIDINE/PF 20 MG/2 ML VIAL IV SCH ×2 (16:38→20:10)
[2019-12-27] MEDS ORDERED: VANCOMYCIN 1.25 GM in SODIUM CHLORIDE 0.9% 250 ML IV SCH (17:00)
[2019-12-27] MEDS ORDERED: SODIUM BICARB 50MEQ 50ML VIAL IV ONE (18:15)
[2019-12-27] MEDS ORDERED: SODIUM BICARB 50 MEQ IV SCH (18:30)
[2019-12-27] MEDS ORDERED: INSULIN GLARGINE 100 UNITS/ML 10 ML VIAL SQ SCH (21:00)
[2019-12-27] MEDS ORDERED: DEXTROSE 5%-WATER 1,000 ML IV ONE (21:55)
[2019-12-27] MEDS ORDERED: CALCIUM GLUCONATE 1 GM/10 ML VIAL IV ONE (21:55)
[2019-12-27 23:57] LABS: ABG BASE EXCESS -8.8 mmol/L (-2.0-3.0); ABG HCO3 18.6 mmol/L (21.0-28.0); ABG OXYGEN SATURATION 94.5 % (95.0-99.0); ABG PCO2 50 mmHg (35-48)
--- NOTE | 2019-12-27 23:59 | NUR ---
ASSESSED PT. ABDOMEN DISTENDED AND SBP DROPPING WHILE MAXED ON BOTH VASOPRESSERS. ABG RETURN POST FIRST BAG OF BICARB SHOWING A LOW HEMOGLOBIN OF 6.6, BLOODY OG OUTPUT. HOSPITAL BIOCHEMISTRY TECHNICIAN GAVE ORDERS FOR KUB AND BLOOD PRODUCTS. CALLED SON AND RECEIVED TELEPHONE CONSENT.
[2019-12-28] VITALS (75 sets, daily range): BP systolic 71–154; BP diastolic 31–115
[2019-12-28 00:21] LABS: CREATININE 4.7 mg/dL (0.5-1.5)
[2019-12-28 00:39] LABS: POTASSIUM 6.6 mmol/L (3.5-5.1)
[2019-12-28 01:21] LABS: PARTIAL THROMBOPLASTIN TIME 74.4 SEC (26.3-35.5)
[2019-12-28 01:28] LABS: INR 3.51 (0.85-1.15); PROTHROMBIN TIME 36.1 SEC (9.6-11.6)
[2019-12-28] MEDS ORDERED: SODIUM CHLORIDE 0.9% 500ML 500 ML IV ONE (01:53)
[2019-12-28 04:05] LABS: ABG BASE EXCESS -4.2 mmol/L (-2.0-3.0); ABG HCO3 22.7 mmol/L (21.0-28.0); ABG OXYGEN SATURATION 75.4 % (95.0-99.0); ABG PCO2 51 mmHg (35-48)
[2019-12-28 04:21] LABS: ABG BASE EXCESS -5.5 mmol/L (-2.0-3.0); ABG HCO3 21.9 mmol/L (21.0-28.0); ABG OXYGEN SATURATION 73.3 % (95.0-99.0); ABG PCO2 53 mmHg (35-48)
[2019-12-28] MEDS ORDERED: CALCIUM GLUCONATE 1 GM/10 ML VIAL IV SCH (04:45)
[2019-12-28 04:48] LABS: HEMATOCRIT 24.9 % (42-54)
[2019-12-28 05:13] LABS: CREATININE 4.9 mg/dL (0.5-1.5); POTASSIUM 5.3 mmol/L (3.5-5.1)
--- NOTE | 2019-12-28 05:13 | NUR ---
ADJUNCT LATIN PROFESSOR NOTIFIED OF ABG CHANGES. NO ORDERS RECEIVED.
[2019-12-28] MEDS: ZOSYN 3.375GM+NS 50ML 50 ML IV SCH ×2 (05:16→15:04)
[2019-12-28] MEDS: INSULIN HUMULIN R 100 UNIT/ML 3ML SQ SCH ×2 (05:17→11:30)
[2019-12-28] MEDS ORDERED: DEXTROSE 50%-WATER 50 ML DISP.SYRIN IV ONE (07:30)
[2019-12-28 07:49] LABS: ABG BASE EXCESS -9.2 mmol/L (-2.0-3.0); ABG HCO3 18.9 mmol/L (21.0-28.0); ABG OXYGEN SATURATION 79.2 % (95.0-99.0); ABG PCO2 54 mmHg (35-48)
[2019-12-28] MEDS ORDERED: SODIUM BICARB 8.4% 50ML SYRING 150 MEQ in DEXTROSE 5%-WATER 1,000 ML IV SCH (08:00)
[2019-12-28] MEDS: METOPROLOL TARTRATE 25 MG TAB PO SCH ×2 (08:58→14:00)
[2019-12-28] MEDS: DILTIAZEM HCL 120 MG CAP.SR.24H PO SCH (08:58)
[2019-12-28] MEDS: DOCUSATE SODIUM 100 MG CAP PO SCH (08:59)
[2019-12-28] MEDS: INSULIN GLARGINE 100 UNITS/ML 10 ML VIAL SQ SCH (08:59)
[2019-12-28] MEDS: CLONAZEPAM 1 MG TABLET PO SCH (08:59)
[2019-12-28] MEDS: ZINC SULFATE 220 CAPSULE PO SCH (09:00)
[2019-12-28] MEDS ORDERED: DEXTROSE 50%-WATER 50 ML DISP.SYRIN IV SCH ×2 (09:00)
[2019-12-28] MEDS: ASCORBIC ACID 500 MG TAB PO SCH (09:52)
[2019-12-28] MEDS: DEXAMETHASONE SOD PHOSPHATE 4 MG/ML 1ML VIAL IVP SCH (09:52)
[2019-12-28] MEDS: FAMOTIDINE/PF 20 MG/2 ML VIAL IV SCH (09:52)
[2019-12-28] MEDS ORDERED: PHYTONADIONE 10 MG in SODIUM CHLORIDE 0.9% 50 ML SQ SCH (10:15)
--- NOTE | 2019-12-28 10:33 | NUR ---
RDSCREEN - LOS X 12 Pt admitted with COVID-19, Acute hypoxemic Respiratory Failure. Pt is intubated, mechanical ventilation. Pt is NPO at this time. Recommend initiate tube feedings, continuous Suplena @15mls, Goal rate 50mls/hr as medically feasible. Recommend H2O Flushes at 125mls Q6hrs. Recommendations faxed to [facility], RN notified. RD NOTE: Pt admitted with COVID-19, Acute hypoxemic Respiratory Failure. Pt is intubated as of 12/26/19, mechanical ventilation. Pt is currently NPO. Poor PO intake x 7 days. LBM 12/25/19. Monitored labs:Hgb 8.0, Na 166, K 5.3, BUN 106, Cr 4.9, GFR 13, BG 30, Ca 7.3, Mg 2.90, T. Bili 3.2, AST 8198, ALT 6755, Alk 169, Alb 2.1. Generalized 2+ edema. Pt to remain NPO at this time per RN. RD to continue to monitor. Please notify as additional nutrition concerns arise. Thank you.
[2019-12-28] MEDS ORDERED: SODIUM CHLORIDE 0.9% 250 ML IV ONE (13:43)
[2019-12-28] MEDS ORDERED: SODIUM BICARB 50MEQ 50ML VIAL 50 ML IV SCH (15:15)
[2019-12-28] MEDS ORDERED: SODIUM BICARB 50MEQ 50ML VIAL 150 ML IV SCH (15:15)
[2019-12-28] MEDS ORDERED: EPINEPHRINE 5 MG in SODIUM CHLORIDE 0.9% 250 ML IV SCH (15:45)
[2019-12-28] MEDS ORDERED: EPINEPHRINE 10 MG in SODIUM CHLORIDE 0.9% 250 ML IV SCH (15:45)
[2019-12-28 15:50] LABS: ABG BASE EXCESS -19.3 mmol/L (-2.0-3.0); ABG OXYGEN SATURATION 71.6 % (95.0-99.0); ABG PCO2 42 mmHg (35-48)
[2019-12-28] MEDS: NOREPINEPHRINE BITARTRATE 32 MG in SODIUM CHLORIDE 0.9% 250 ML IV SCH (15:55)
[2019-12-28] MEDS: VASOPRESSIN 40 UNITS in SODIUM CHLORIDE 0.9% 40 ML IV SCH (15:56)
--- NOTE | 2019-12-28 16:01 | NUR ---
ABG, Slow rhythm Notified Dr. Estrada with Pt's slow ventricular rhythm and abg result, Pt already in bicarb drip, max dose levo, max dose vaso, D10 at 100ml, FFP infusing, cardiac pads in place, BP unable to read at this time, no orders received from Dr. Estrada, Called son and updated with current situation, Pt remained full code.
--- NOTE | 2019-12-28 17:04 | NUR ---
Time of Time of 163, witnessed by this RN and Lizzie BARRERA, notified Pt's son Lily, Dr. Estrada, Dr. Inman and Livier Kelley RN.
--- NOTE | 2019-12-28 17:05 | NUR ---
time of Time of deth pronounced by Dr. Inman.
--- NOTE | 2019-12-28 18:46 | NUR ---
Pt's body now in the morgue, called and updated Pt's son, given him the house supervisors phone no. for them to call once they have home arrangement. Notified him as well that Pt have a phone, drivers license and his necklace in a Pt belongings bag with the security delivery specialist.
[2019-12-28] MEDS ORDERED: PANTOPRAZOLE 40 MG/VIAL IVP SCH (21:00)
== END 2019-12-28 16:34 | disposition expired | DRG 871 ==
LOC: EDH 16:24 → EDHIP 20:28 → 2AH 23:03 → 2BH 12-21 12:00 → 2AH 12-21 12:01 → 2BH 12-26 16:33
PROVIDERS: ADMIT Internal Medicine; ATTEND Internal Medicine
PROC: XW033E5 Introduction of Remdesivir Anti-infective into Peripheral Vein, Percutaneous Approach, New Technology Group 5 (ICD-10-PCS; 2019-12-17)
PROC: XW13325 Transfusion of Convalescent Plasma (Nonautologous) into Peripheral Vein, Percutaneous Approach, New Technology Group 5 (ICD-10-PCS; principal; 2019-12-18)
PROC: 5A1945Z Respiratory Ventilation, 24-96 Consecutive Hours (ICD-10-PCS; 2019-12-26)
PROC: 0BH17EZ Insertion of Endotracheal Airway into Trachea, Via Natural or Artificial Opening (ICD-10-PCS; 2019-12-26)
PROC: 5A12012 Performance of Cardiac Output, Single, Manual (ICD-10-PCS; 2019-12-26)
PROC: 5A2204Z Restoration of Cardiac Rhythm, Single (ICD-10-PCS; 2019-12-26)
PROC: 30233N1 Transfusion of Nonautologous Red Blood Cells into Peripheral Vein, Percutaneous Approach (ICD-10-PCS; 2019-12-28)
PROC: 02HV33Z Insertion of Infusion Device into Superior Vena Cava, Percutaneous Approach (ICD-10-PCS; 2019-12-28)
DX: A41.89 Other specified sepsis (principal); U07.1 COVID-19; J96.01 Acute respiratory failure with hypoxia; J12.89 Other viral pneumonia; R65.21 Severe sepsis with septic shock; N17.0 Acute kidney failure with tubular necrosis; D65 Disseminated intravascular coagulation [defibrination syndrome]; I48.92 Unspecified atrial flutter; E87.2 Acidosis; K92.2 Gastrointestinal hemorrhage, unspecified; D62 Acute posthemorrhagic anemia; E87.0 Hyperosmolality and hypernatremia; I48.91 Unspecified atrial fibrillation; E86.1 Hypovolemia; E87.5 Hyperkalemia; E11.65 Type 2 diabetes mellitus with hyperglycemia; E11.649 Type 2 diabetes mellitus with hypoglycemia without coma; R57.8 Other shock; I46.9 Cardiac arrest, cause unspecified; F41.1 Generalized anxiety disorder; D75.1 Secondary polycythemia; I10 Essential (primary) hypertension; T38.0X5A Adverse effect of glucocorticoids and synthetic analogues, initial encounter; Z79.01 Long term (current) use of anticoagulants; Y92.89 Other specified places as the place of occurrence of the external cause
CPT/HCPCS: 31500; 36415; 36430; 36569; 36600; 71045; 71046; 71110; 74018; 76700; 80048; 80053; 80076; 81001; 82248; 82330; 82435; 82550; 82565; 82728; 82803; 82947; 82948; 83036; 83605; 83615; 83735; 83874; 83880; 84100; 84132; 84145; 84295; 84484; 85014; 85018; 85025; 85378; 85610; 85730; 86140; 86850; 86900; 86901; 86923; 86927; 87040; 87088; 87426; 87804; 92950; 93005; 93306; 94002; 94003; 97039; C1751; C1894; C9113; G0378; J0171; J0610; J0696; J1100; J1650; J1815; J1940; J2543; J2704; J2920; J3370; J3430; J3490; J7030; J7040; J7050; J7070; J7120; J8540; P9016; P9017; P9046; P9047